=== PATIENT | male | born 1995 | race African-American/Black ===

== ENCOUNTER 2021-02-26 01:46 | Emergency (ER) | payer MEDICAID ==
[~2021-02-26] VITALS: Ht 182.9 cm; Wt 73.0 kg
[2021-02-26] MEDS ORDERED: SODIUM CHLORIDE 0.9% 1,000 ML IV ONE (03:15)
[2021-02-26] MEDS ORDERED: LORAZEPAM 0.5MG TABLET PO ONE (03:30)
[2021-02-26 03:40] LABS: BASOPHILS % 0.4 % (0.0-2.0); EOSINOPHILS % 1.3 % (0.0-5.0); HEMATOCRIT. 43.4 % (42.0-52.0); HEMOGLOBIN. 14.9 g/dL (14.0-18.0); LYMPHOCYTES % 25.1 % (20.0-50.0); MEAN CORPUSCULAR HEMOGLOBIN 31.4 pg (28.0-32.0); MEAN CORPUSCULAR VOLUME 91.7 fL (80.0-94.0); MEAN PLATELET VOLUME 7.5 fl (7.4-10.4); MONOCYTES % 8.1 % (2.0-8.0); NEUTROPHILS % 65.1 % (40.0-76.0); PLATELET 185 x1000/uL (130-400); RED BLOOD CELL COUNT 4.73 mill/uL (4.7-6.1); RED CELL DISTRIBUTION WIDTH 12.8 % (11.6-14.6)
[2021-02-26 03:48] LABS: CLARITY URINE CLEAR (CLEAR); COLOR URINE YELLOW (YELLOW); KETONES URINE TRACE (NEGATIVE); LEUKOCYTE ESTERASE URINE NEGATIVE (NEGATIVE); NITRITE URINE NEGATIVE (NEGATIVE); OCCULT BLOOD URINE NEGATIVE (NEGATIVE); PROTEIN URINE NEGATIVE (NEGATIVE); SPECIFIC GRAVITY URINE 1.029 (1.005-1.030)
[2021-02-26 03:48] LABS: CHLORIDE 109 mEq/L (98-107)
[2021-02-26 03:52] LABS: ETHANOL BLOOD < 10 mg/dL
[2021-02-26 04:04] LABS: *BARBITURATES SCREEN URINE NEGATIVE (NEGATIVE); *BENZODIAZEPINES SCREEN URINE NEGATIVE (NEGATIVE); *COCAINE SCREEN URINE NEGATIVE (NEGATIVE); METHADONE URINE SCREEN NEGATIVE (NEGATIVE); OPIATES URINE SCREEN NEGATIVE (NEGATIVE); PHENCYCLIDINE URINE SCREEN NEGATIVE (NEGATIVE)
[2021-02-26 04:05] LABS: *AMPHETAMINES SCREEN URINE NEGATIVE (NEGATIVE); CANNABINOID URINE SCREEN PRESUMTIVE POSITIVE (NEGATIVE)
[2021-02-26] MEDS ORDERED: HYDR-3782 MT (05:19)
[2021-02-26 05:30] VITALS: BP 108/61
== END 2021-02-26 05:43 | disposition home or self-care (01) ==
LOC: ER 01:46
DX: T40.711A Poisoning by cannabis, accidental (unintentional), initial encounter (principal); R00.2 Palpitations; R53.81 Other malaise; R42 Dizziness and giddiness; R25.1 Tremor, unspecified; F41.0 Panic disorder [episodic paroxysmal anxiety]; I49.49 Other premature depolarization; F12.988 Cannabis use, unspecified with other cannabis-induced disorder; Y92.89 Other specified places as the place of occurrence of the external cause
CPT/HCPCS: 36415; 71045; 80053; 80305; 80320; 81003; 84484; 85025; 87426; 93005; 96360; 99285; J7030; G0480